=== PATIENT | male | born 1950 | race American Indian/Alaskan Native ===

== ENCOUNTER 2020-11-09 15:41 | Inpatient (IN) | payer MEDICARE ==
--- NOTE | 2020-11-09 16:25 | History and Physical Report ---
History of Present Illness Chief complaint: Unresponsive History of present illness: 70 YO Male with HTN, CHF, COPD, CAD S/P CABG presents to ED for evaluation. Patient intubated and on ventilatory support at the time of my evaluation and is unable to provide history. Patient history provided by EMS staff, ED staff, as well as the patient's who was at bedside at the time my exam and interview. As per report, she returned from the store and found her lying unresponsive in the floor. EMS was notified and upon arrival the patient was found to be in asystolic arrest. Patient was initiated on ACLS protocol and transported to [facility] for further care and evaluation of the aforementioned symptoms. The patient was seen and evaluated in the emergency department. All lab and imaging studies reviewed. The patient was found to have acute hypoxemic respiratory failure and was intubated and placed on ventilatory support. The patient was also found to have cardiac arrest and initiated on ACLS protocol with eventual return of perfusing cardiac rhythm. The patient was found to have clinical symptoms consistent with anoxic brain injury. Patient admitted to ICU due to increased risk of multiple organ system failure. Cardiology team consulted in ED. Critical care team consulted in ED. No prior admission for review. No medication listed at time of admission for reconciliation. Advanced care planning conducted in ED. Past History Past Medical History: CAD, COPD, heart failure, hypertension, other (See HPI) Past Surgical History: CABG Social history: , lives with family Family history: diabetes, hypertension Review of Systems ROS unobtainable: due to endotracheal tube, due to mental status Exam - Constitutional General appearance: Present: severe distress - EENT Eyes: Present: mydriasis ENT: hearing decreased - Neck Neck: Present: supple, normal ROM - Respiratory Respiratory effort: labored Respiratory: bilateral: diminished, rhonchi - Cardiovascular Heart Sounds: Present: S1 & S2. Absent: rub, click - Extremities Extremities: pulses symmetrical Extremity abnormal: edema Peripheral Pulses: abnormal (Diminished bilateral lower extremities) - Abdominal General gastrointestinal: Present: soft, non-tender, non-distended, normal bowel sounds Male genitourinary: Present: normal - Integumentary Integumentary: Present: dry, clammy, decreased turgor - Musculoskeletal Musculoskeletal: generalized weakness - Psychiatric Psychiatric: no appropriate mood/affect, no intact judgment & insight, no memory intact - Neurologic Neurologic: no CNII-XII intact, focal deficits, no moves all extremities, no gait normal Results - Labs CBC & Chem 7: 11/09/20 16:26 11/09/20 16:26 Assessment and Plan - Patient Problems (1) Cardiac arrest Current Visit: Yes Status: Acute Plan to address problem: Patient treated in accordance with ACLS protocol with return of perfusing cardiac rhythm, supportive care. Cardiology team consulted, echocardiogram ordered and is pending at time of admission. Patient has poor prognosis. Patient family notified. The high probability of a clinically significant, sudden or life threatening deterioration of the [cardiac, pulmonary, neuro, renal] system(s) required my full and direct attention, intervention and personal management. The aggregate critical care time was [95] minutes. This time is in addition to time spent performing reported procedures but includes the following: [x] Data Review and interpretation [x] Patient assessment and monitoring of vital signs [x] Documentation [x] Medication orders and management (2) Acute hypoxemic respiratory failure Current Visit: Yes Status: Acute Plan to address problem: Patient intubated and on ventilatory support, wean vent as tolerated, supportive care, critical critical care team consulted. (3) Anoxic brain injury Current Visit: Yes Status: Acute Plan to address problem: Patient pupils are fixed and dilated the time my evaluation. Patient family counseled regarding poor prognosis. Patient family elects to make patient DNR. (4) Congestive heart failure Current Visit: Yes Status: Acute Qualifiers: Heart failure type: systolic Plan to address problem: Strict I's/O, monitor urine output every shift, cardiology team consulted in ED, echocardiogram, continue supportive care. (5) DVT prophylaxis Current Visit: Yes Status: Acute Plan to address problem: SCD to bilateral extremities while in bed. (6) Advance care planning Current Visit: Yes Status: Acute Plan to address problem: Disease education conducted, care plan discussed, diagnosis discussed, prognosis discussed. Patient informed of patient poor prognosis and acknowledges understanding and agreement with care plan. Patient elects to make patient DNR and to initiate comfort care measures. +30 minutes.
--- NOTE | 2020-11-09 16:28 | Emergency Department Report ---
ED General Adult HPI - General Chief complaint: Cardiac Arrest/CPR Stated complaint: CARDIAC ARREST Time Seen by Provider: 11/09/20 16:04 Source: EMS Mode of arrival: Stretcher Limitations: Physical Limitation - History of Present Illness Initial comments: The patient presents to the emergency department via EMS for cardiac arrest. The patient arrives intubated and receiving respirations via [id number]. Per EMS they were called to the home for cardiac arrest. The patient's states she left to go to the store an hour prior to her returning home and the patient was found on the floor unresponsive. Patient has a history of congestive heart failure and unspecified open heart surgery. Patient is not able to add to history due to his medical condition. -: Sudden Consistency: constant Improves with: none Worsens with: none Associated Symptoms: denies other symptoms Treatments Prior to Arrival: none ED Review of Systems ROS: Stated complaint: CARDIAC ARREST Other details as noted in HPI Comment: Unobtainable due to pts medical conditions ED Physical Exam - General Limitations: Physical Limitation General appearance: other (Unresponsive, intubated) - Head Head exam: Present: atraumatic, normocephalic - Eye Eye exam: Absent: PERRL, scleral icterus - ENT ENT exam: Present: mucous membranes moist - Respiratory Respiratory exam: Present: other (Clear breath sounds bilaterally via BVM) - Cardiovascular Cardiovascular Exam: Present: other (Asystole) - GI/Abdominal GI/Abdominal exam: Present: soft, distended, other (Abdomen is distended likely secondary to intragastric air accumulation due to BVM) - Extremities Exam Extremities exam: Present: other (Bilateral pitting edema) - Neurological Exam Neurological exam: Present: other (T3) - Psychiatric Psychiatric exam: Present: other (Not able to assess due to the patient's medical condition) - Skin Skin exam: Present: warm, dry, intact, normal color. Absent: rash ED Medical Decision Making - Lab Data Result diagrams: 11/09/20 16:26 - EKG Data -: EKG Interpreted by Me EKG shows normal: sinus rhythm Rate: bradycardia - EKG Data Interpretation: other (Bundle branch block, right side. ST depressions in V4 V5) - Medical Decision Making Upon the patient's arrival to the emergency department the patient was without pulses. ACLS protocol followed please see code sheet. There was a return of spontaneous circulation x3. Patient started on dopamine drip EKG sent and discussed with Dr. Vazquez and there is no STEMI on EKG Critical Care Time: Yes Critical care time in (mins) excluding proc time.: 60 Critical care attestation.: If time is entered above; I have spent that time in minutes in the direct care of this critically ill patient, excluding procedure time. ED Disposition Clinical Impression: Cardiac arrest, Respiratory failure Disposition: [id number] OP ADMIT IP TO THIS HOSP Is pt being admited?: Yes Does the pt Need Aspirin: No Condition: Critical
[2020-11-09 16:38] LABS: Mean Corpuscular HGB Conc 29 % (32-34); Mean Corpuscular Volume 95 fl (84-94); Platelet Count 185 K/mm3 (140-440); Red Blood Count 3.49 M/mm3 (3.65-5.03); Red Cell Distribution Width 18.1 % (13.2-15.2)
[2020-11-09 16:44] LABS: ABG Base Excess -19.8 mmol/L (-2.0-3.0); ABG HCO3 10.5 mmol/L (20.0-26.0); ABG Methemoglobin 0.5 % (0.0-1.5); ABG Oxygen Saturation 97.1 % (95.0-99.0); ABG PO2 134.2 mm Hg (80.0-90.0)
[2020-11-09 16:46] LABS: ABG PH 6.988 pH Units (7.350-7.450)
[2020-11-09 16:47] LABS: Hemoglobin 9.6 gm/dl (11.8-15.2)
[2020-11-09 16:54] VITALS: BP 134/58
[2020-11-09 16:57] LABS: Alanine Aminotransferase 582 units/L (7-56); Albumin 3.4 g/dL (3.9-5); BUN/Creatinine Ratio 14; Bilirubin,Direct 0.4 mg/dL (0-0.2); Blood Urea Nitrogen 18 mg/dL (9-20); Calcium 8.2 mg/dL (8.4-10.2); Hemolysis Index 63
[2020-11-09 17:03] LABS: INR 1.75 (0.87-1.13)
[2020-11-09 17:04] LABS: Partial Thromboplastin Time 57.6 Sec. (24.2-36.6)
--- NOTE | 2020-11-09 17:11 | Event Note ---
Date: 11/09/20 Although this patient was admitted to the hospitalist service, I was made aware of this patient's presentation as he has had multiple cardiac arrests with ROSC since arriving to the emergency department. I was called to the room at 1657 as the patient had significant bradycardia and appeared pulseless. I supervised 2 rounds of ACLS protocol in which the patient was given epinephrine x2, bag valve ventilation through the endotracheal tube, and chest compressions. Patient remained in PEA. After the second round he had a palpable femoral pulse and bedside ultrasound showed reasonable heart contractions. An epi drip has been ordered to be added to the dopamine drip.
--- NOTE | 2020-11-09 17:12 | XRay Report ---
CHEST 1 VIEW INDICATION / CLINICAL INFORMATION: Cardiac arrest. FINDINGS: SUPPORT DEVICES: The tip of the endotracheal tube is seen at the level of the chris near the origin of the right mainstem bronchus and should be withdrawn 3 to 4 cm.. HEART / MEDIASTINUM: Prior CABG. LUNGS / PLEURA: Patchy ill-defined airspace disease within both upper lungs, left worse than right. Signer Name: Kennedy Olivera MD Signed: 11/09/2020 5:07 PM Workstation Name: [id number]
[2020-11-09] MEDS ORDERED: EPINEPHrine 1 MG/10 ML SYRINGE ONE (17:27)
[2020-11-09] MEDS ORDERED: EPINEPHrine 1 MG/1 ML 8 MG in SODIUM CHLORIDE 0.9% 250ML 242 ML IV SCH (18:00)
--- NOTE | 2020-11-09 18:53 | Death Note ---
Note Date of : 11/09/20 Time of : 18:03 Time Pronounced: 18:03 - Preliminary Cause of (problem) (1) Cardiac arrest Preliminary cause of (2) Acute hypoxemic respiratory failure Preliminary cause of (3) Anoxic brain injury Preliminary cause of (4) Congestive heart failure Qualifiers: Heart failure type: systolic Preliminary cause of (5) DVT prophylaxis Preliminary cause of (6) Advance care planning Preliminary cause of
[2020-11-09 18:54] LABS: RBC Morphology Normal; Total Cells Counted 100
== END 2020-11-09 18:10 | DRG 208 ==
LOC: EDBD → ED 15:41 → CC1 16:26
PROVIDERS: ADMIT Internal Medicine; ATTEND Internal Medicine
PROC: 5A1935Z Respiratory Ventilation, Less than 24 Consecutive Hours (ICD-10-PCS; principal; 2020-11-09)
PROC: 4A033R1 Measurement of Arterial Saturation, Peripheral, Percutaneous Approach (ICD-10-PCS; 2020-11-09)
PROC: 0BH17EZ Insertion of Endotracheal Airway into Trachea, Via Natural or Artificial Opening (ICD-10-PCS; 2020-11-09)
PROC: 06HY33Z Insertion of Infusion Device into Lower Vein, Percutaneous Approach (ICD-10-PCS; 2020-11-09)
PROC: B54BZZA Ultrasonography of Right Lower Extremity Veins, Guidance (ICD-10-PCS; 2020-11-09)
DX: J96.01 Acute respiratory failure with hypoxia (principal); G93.1 Anoxic brain damage, not elsewhere classified; I50.20 Unspecified systolic (congestive) heart failure; I46.9 Cardiac arrest, cause unspecified; Z66 Do not resuscitate; R00.1 Bradycardia, unspecified; I11.0 Hypertensive heart disease with heart failure; J44.9 Chronic obstructive pulmonary disease, unspecified; I25.10 Atherosclerotic heart disease of native coronary artery without angina pectoris; Z95.1 Presence of aortocoronary bypass graft; Z82.49 Family history of ischemic heart disease and other diseases of the circulatory system; Z83.3 Family history of diabetes mellitus
CPT/HCPCS: 36415; 36600; 71045; 80048; 80076; 82140; 82803; 83880; 84484; 85007; 85025; 85610; 85730; 87040; 94002; G0378; J0171